=== PATIENT | female | born 1960 ===

== ENCOUNTER → 2021-01-22 | Outpatient (CLI) | payer MEDICARE ==
--- NOTE | 2021-01-22 10:24 | RAD ---
CT CERVICAL SPINE WO History: Neck pain, muscle pain posteriorly Comparison: None. Technique: Noncontrast CT of the cervical spine. Findings: There are 7 nonrib-bearing cervical vertebral segments. There is no evidence for fracture in the cervical spine. Alignment is normal. Mild multilevel degenerative disc disease and uncovertebral and facet hypertrophy in the cervical spi ne. No significant foraminal canal stenosis. No destructive osseous lesions are seen. Coarsely calcified 1.2 cm right thyroid nodule. Prominent right intraparotid lymph node measures 1.3 cm short axis with retained fatty hilum. Calcification of the aortic arch. Mild to moderate emphysema tous changes in the lung apices. Bilateral carotid calcifications. Impression: 1. Very mild degenerative changes in the cervical spine without acute osseous abnormality. ------- Exposure: One or more of the following individualized dose reduction techniques were utilized for thi s examination: 1. Automated exposure control 2. Adjustment of the mA and/or kV according to patient size 3. Use of iterative reconstruction technique. Electronically signed by: Dave Mora MD (01/22/2021 10:21 AM) [facility]
--- NOTE | 2021-01-25 11:10 | RAD ---
BILATERAL DIGITAL SCREENING 2-D AND 3-D MAMMOGRAM INDICATION: Routine screening. COMPARISON: Prior studies including 1 12/27/2017. Interpretation was made using CAD. FINDINGS: Breast Density: B RIGHT BREAST: No suspicious masses, calcifications or areas of architectural distortion are seen. LEFT BREAST: No suspicious masses, calcifications or areas of architectural distortion are seen. IMPRESSION: 1. No imaging evidence of malignancy. ASSESSMENT: BI-RADS 1. Negative. RECOMMENDATION: Routine annual screening mammogram. The facility will notify the patient of the results via mail. Patient information will be entered int o the mammography reminder system with a target recall date for the next mammogram. A reminder letter will be generated by the facility. Electronically signed by: Pavel Knox Jr., MD (01/25/2021 11:08 AM) [id number]
== END ==
LOC: MAMMO 08:25
PROVIDERS: ATTEND Family Medicine
DX: Z12.31 Encounter for screening mammogram for malignant neoplasm of breast (principal); I65.23 Occlusion and stenosis of bilateral carotid arteries; I70.0 Atherosclerosis of aorta; J43.9 Emphysema, unspecified; I89.8 Other specified noninfective disorders of lymphatic vessels and lymph nodes; M47.22 Other spondylosis with radiculopathy, cervical region; M48.8X2 Other specified spondylopathies, cervical region
CPT/HCPCS: 72125; 77063; 77067